=== PATIENT | female | born 1985 | race Caucasian/White ===

== ENCOUNTER 2020-12-13 17:58 | Emergency (ER) | payer SELFPAY ==
--- NOTE | ~2020-12-13 | XR_ITS ---
EXAMINATION: XR shoulder LT min 2V EXAM DATE: 12/13/2020 19:17 INDICATION: Left posterior shoulder pain. No acute trauma. TECHNIQUE: The following left shoulder projections obtained: frontal projection with internal rotatio n, frontal projection with external rotation, Grashey, and scapular Y view (4+ views). There is no p rior study for comparison. FINDINGS: No evidence of left shoulder rotator cuff calcific tendinosis. Unremarkable left glenohu meral and acromioclavicular joints. There are no acute fractures or dislocations identified. There i s no subcutaneous gas. The soft tissue is unremarkable. There are no radiopaque foreign bodies. IMPRESSION: Unremarkable left shoulder exam. Reviewed, dictated and finalized at location [facility].
[2020-12-13 18:20] VITALS: BP 127/78; PULSE 96; RESP 16; TEMP 36.6; O2SAT 98
[2020-12-13] MEDS: KETOROLAC (*BKC) 60 MG/2 ML VIAL IM (19:24)
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
[2020-12-13 19:55] VITALS: BP 128/74; PULSE 87; RESP 20; O2SAT 98
== END 2020-12-13 20:00 | disposition home or self-care (01) ==
PROVIDERS: Emergency Provider Emergency Medicine
DX: M25.512 Pain in left shoulder (principal)
CPT/HCPCS: 73030; 96372; 99283; J1885; L3670

== ENCOUNTER 2022-06-19 12:35 | Emergency (ER) | payer OTHER, SELFPAY ==
--- NOTE | ~2022-06-19 | CT_ITS ---
Non-contrast Head CT History: Head injury Technique: Axial non-contrast imaging of the brain was performed. Dose reduction technique was used on this scan by utilizing automated exposure control and iterative reconstruction technique. The dose -length product (DLP) was 605.33 mGy-cm. Findings: There is no evidence of intracranial hemorrhage, mass lesion, or acute infarct. Brain par enchyma appears normal. The ventricles and subarachnoid spaces are normal in size. The calvarium ap pears normal. The visualized paranasal sinuses and mastoid air cells are clear. Impression: No significant abnormality seen. Reviewed, dictated and finalized at [facility]. MAKER Impression: No significant abnormality seen.
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
[2022-06-19 12:35] VITALS: BP 136/100; PULSE 97; RESP 20; TEMP 36.8; O2SAT 99
[2022-06-19 12:40] VITALS: BP 136/100; PULSE 100; RESP 20; TEMP 36.8; O2SAT 99
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
[2022-06-19 13:58] LABS: Add Urine Microscopic? YES; Appearance Urine Clear (Clear); Bilirubin Urine 1+ (Negative); Blood Urine Negative (Negative); Glucose Urine UA Negative (Negative); Ketones Urine 2+ (Negative); Leukocyte Esterase Ur Negative (Negative); Nitrate Urine Negative (Negative); Protein Urine Negative (Negative); Specific Grav Ur >= 1.030 (1.010-1.020); Urobilinogen Urine 0.2 mg/dL (0.2-1.0); pH Urine 5.5 (5.0-8.0)
[2022-06-19 14:00] VITALS: BP 130/66; PULSE 100; RESP 18; O2SAT 100
[2022-06-19 14:01] LABS: Pregnancy On Board Control Positive; Urine Pregnancy Test Negative
[2022-06-19 14:04] LABS: Color Urine Amber (Yellow); RBC Urine None seen /hpf (0-2); Squamous Epithelial Cell Urine Few /hpf (Few); WBC Urine None seen /hpf (0-3)
[2022-06-19 14:05] LABS: Bacteria Urine Trace /hpf; Mucus Urine Moderate /lpf
[2022-06-19 16:12] VITALS: BP 125/77; PULSE 105; RESP 16; TEMP 36.8; O2SAT 98
[2022-06-19] MEDS: HYDROmorphone HCL INJ (*CRX) 2 MG/ML VIAL 1 MG IV PUSH (16:16)
[2022-06-19 17:02] VITALS: BP 165/70; PULSE 87; RESP 18; O2SAT 99
== END 2022-06-19 17:00 | disposition short-term general hospital (02) ==
PROVIDERS: Emergency Provider Emergency Medicine; PCP Internal Medicine
DX: S32.049A Unspecified fracture of fourth lumbar vertebra, initial encounter for closed fracture (principal); S39.012A Strain of muscle, fascia and tendon of lower back, initial encounter; T14.8XXA Other injury of unspecified body region, initial encounter; S09.90XA Unspecified injury of head, initial encounter; Y04.8XXA Assault by other bodily force, initial encounter; F17.210 Nicotine dependence, cigarettes, uncomplicated; F12.90 Cannabis use, unspecified, uncomplicated
CPT/HCPCS: 70450; 72131; 81001; 81025; 96374; 99285; J1170